=== PATIENT | male | born 1960 | race Caucasian/White ===

== ENCOUNTER → 2020-10-06 | Outpatient (CLI) | payer OTHER ==
[2015-03-10 10:19] VITALS: BP 115/72
[~2020-10-06] MED LIST: ASPI1TAB31 PO; CHOL200027 PO
--- NOTE | 2020-10-06 13:10 | KCIC ---
EXAM: LEFT SHOULDER 3 VIEWS. HISTORY: Left shoulder pain and limited range of motion. COMPARISON: None. FINDINGS: No fractures are identified. Glenohumeral joint spaces and alignment are maintained. Acromi oclavicular joint spaces and alignment are maintained. IMPRESSION: 1. No fracture or malalignment. Electronically signed by: Delia Jackson MD (10/06/2020 1:07 PM) [id number]
== END ==
LOC: KCIC 10:27
PROVIDERS: ATTEND Family Medicine
DX: M25.512 Pain in left shoulder (principal)
CPT/HCPCS: 73030

== ENCOUNTER → 2021-10-22 | Outpatient (CLI) | payer BC ==
[2015-03-10 10:19] VITALS: BP 115/72
--- NOTE | 2021-10-22 16:37 | KCIC ---
CT LOW DOSE LUNG SCREEN INDICATION: Lung cancer screening, smoker 45 yrs., 1 pk.day. COMPARISON STUDY: None. TECHNIQUE: Unenhanced axial images were obtained through the lungs and upper abdomen using low dose technique. Coronal and sagittal multiplanar reformatted images were also obtained. PQRS compliance statement: One or more of the following individualized dose reduction techniques were utilized for this examinat ion: 1. Automated exposure control 2. Adjustment of the mA and/or kV according to patient size 3. Use of iterative reconstruction technique FINDINGS: Lung Nodules: Right upper lobe 4 mm solid nodule (series 6 image 147). Calcified pulmonary granulomas . Lungs and Airways: No pulmonary mass or consolidation. Scattered subpleural reticulation. Paraseptal and centrilobular emphysema Normal central airways. Pleura: Normal pleural spaces. Heart and Mediastinum: The visualized portions of the thyroid gland are normal in size and attenuatio n. No axillary or supraclavicular lymphadenopathy. Few conspicuous but not pathologically enlarged by CT criteria mediastinal lymph nodes. Calcified mediastinal and hilar lymph nodes consistent with rem ote granulomatous disease. The heart and pericardium are within normal limits. Normal caliber thoraci c aorta. Abdomen: Calcified splenic granulomas. Bones and Soft Tissues: Degenerative changes of the spine. IMPRESSION: 1. Indeterminate right upper lobe 4 mm nodule. Lung-RADS Category: 2 Management Recommendation: Follow up low-dose chest CT in one year. 2. Scattered subpleural reticulation which may represent early fibrosis. 3. Paraseptal and centrilobular emphysema. Electronically signed by: Kirill Dye MD (10/22/2021 4:35 PM) [id number]
== END ==
LOC: KCIC CT 13:03
PROVIDERS: ATTEND Family Medicine
DX: Z12.2 Encounter for screening for malignant neoplasm of respiratory organs (principal); J43.2 Centrilobular emphysema; D73.89 Other diseases of spleen; M47.819 Spondylosis without myelopathy or radiculopathy, site unspecified; F17.210 Nicotine dependence, cigarettes, uncomplicated
CPT/HCPCS: 71271